=== PATIENT | male | born 1950 | race Caucasian/White ===

== ENCOUNTER → 2024-06-21 14:45 | Outpatient (REF) | payer OTHER, SELFPAY | LOC: HWRCS 14:45 | PROVIDERS: ATTENDING PHYSICIAN Nuclear Medicine Nuclear Cardiology; FAMILY PHYSICIAN Student in an Organized Health Care Education/Training Program | DX: I45.10 Unspecified right bundle-branch block (principal); I25.10 Atherosclerotic heart disease of native coronary artery without angina pectoris | CPT/HCPCS: 93306 ==